=== PATIENT | male | born 1965 | race American Indian/Alaskan Native ===

== ENCOUNTER 2017-07-23 10:58 | Inpatient (IN) | payer OTHER ==
[2017-07-23] MEDS ORDERED: NITRO-BID 2% TP ONE (11:45)
[2017-07-23] MEDS ORDERED: CATAPRES PO ONE (11:45)
[2017-07-23 11:58] LABS: Basophils % (Auto) 0.6 % (0.0-1.8); Eosinophils % (Auto) 4.5 % (0.0-4.3); Hematocrit 39.8 % (35.5-45.6); Hemoglobin 13.1 gm/dl (11.8-15.2); Mean Corpuscular HGB Conc 33 % (32-34); Mean Corpuscular Hemoglobin 30 pg (28-32); Mean Corpuscular Volume 93 fl (84-94); Platelet Count 242 K/mm3 (140-440); Red Cell Distribution Width 12.8 % (13.2-15.2); White Blood Count 7.7 K/mm3 (4.5-11.0)
[2017-07-23] MEDS ORDERED: CATAPRES ONE (11:58)
--- NOTE | 2017-07-23 12:03 | Emergency Department Report ---
HPI - General Chief Complaint: Chest Pain Time Seen by Provider: 07/23/17 11:44 - HPI HPI: Room 6 The patient is a 52-year-old male presented with the chief complaint chest pain. Patient states he's had intermittent left-sided chest pain for approximately one month that feels like a pressure in nature. The patient states he went to the fire department today to be evaluated and they found him to be hypertensive. Patient was then transported to the ED. The patient states he has shortness of breath, diaphoresis and nausea without vomiting associated with this chest pain. Patient states he's never had a stress test or cardiac catheterization Location: Left chest Duration: Intermittently 1 month Quality: Pressure Severity: Currently 0/10 Modifying factors: [see above] Context: [see above] Mode of transportation: [not driving] ED Past Medical Hx - Past Medical History Hx Hypertension: Yes (non-compliant with meds) - Surgical History Additional Surgical History: leg surgery - Family History Family history: no significant - Social History Smoking Status: Current Every Day Smoker (1 pack per day) Substance Use Type: None (denies illicit drug use), Alcohol (occasional) - Medications Home Medications: Home Medications Medication Instructions Recorded Confirmed Last Taken Type No Known Home Medications [No 07/23/17 07/23/17 Unknown History Reported Home Medications] ED Review of Systems ROS: Stated complaint: CHEST PAIN Other details as noted in HPI Comment: All other systems reviewed and negative Constitutional: diaphoresis Eyes: denies: eye pain, eye discharge, vision change ENT: denies: ear pain, throat pain Respiratory: shortness of breath Cardiovascular: chest pain Endocrine: no symptoms reported Gastrointestinal: nausea. denies: vomiting Genitourinary: denies: urgency, dysuria Musculoskeletal: denies: back pain, joint swelling, arthralgia Skin: denies: rash, lesions Neurological: denies: headache, weakness, paresthesias Psychiatric: denies: anxiety, depression Hematological/Lymphatic: denies: easy bleeding, easy bruising Physical Exam - Physical Exam Vital Signs: Vital Signs 07/23/17 11:18 Temperature 98.3 F Pulse Rate 70 Respiratory 20 Rate Blood Pressure 233/112 O2 Sat by Pulse 98 Oximetry Physical Exam: GENERAL: The patient is well-developed well-nourished male lying on stretcher, appeared to be in acute distress. [] HEENT: Normocephalic. Atraumatic. Extraocular motions are intact. Patient has moist mucous membranes. NECK: Supple. Trachea midline CHEST/LUNGS: Clear to auscultation. There is no respiratory distress noted. HEART/CARDIOVASCULAR: Regular. There is no tachycardia. There is no gallop rub or murmur. ABDOMEN: Abdomen is soft, nontender. Patient has normal bowel sounds. There is no abdominal distention. SKIN: There is no rash. There is no edema. There is no diaphoresis. NEURO: The patient is awake, alert, and oriented. The patient is cooperative. The patient has normal speech MUSCULOSKELETAL:There is no evidence of acute injury. ED Course Vital Signs 07/23/17 11:18 Temperature 98.3 F Pulse Rate 70 Respiratory 20 Rate Blood Pressure 233/112 O2 Sat by Pulse 98 Oximetry ED Medical Decision Making - Lab Data Laboratory Tests 07/23/17 07/23/17 11:37 11:37 WBC 7.7 RBC 4.30 Hgb 13.1 Hct 39.8 MCV 93 MCH 30 MCHC 33 RDW 12.8 L Plt Count 242 Lymph % (Auto) 32.3 [place] % (Auto) 6.8 Eos % (Auto) 4.5 H Baso % (Auto) 0.6 Lymph # 2.5 [place] # 0.5 Eos # 0.3 Baso # 0.0 Seg Neutrophils % 55.8 Seg Neutrophils # 4.3 Sodium 141 Potassium 4.1 Chloride 100.4 Carbon Dioxide 26 Anion Gap 19 BUN 9 Creatinine 0.8 Estimated GFR > 60 BUN/Creatinine Ratio 11 Glucose 238 H Calcium 9.0 Troponin T < 0.010 - EKG Data -: EKG Interpreted by Me EKG shows normal: sinus rhythm Rate: normal - EKG Data When compared to previous EKG there are: previous EKG unavailable Interpretation: nonspecific ST-T wave sujata (T-wave inversions in leads 2, 3, aVF , V5, V6) - Radiology Data Radiology results: image reviewed (chest x-ray) interpreted by me: Chest [id number]. No focal infiltrates, no pneumothorax - Differential Diagnosis ACS, pericarditis, hypertensive urgency Critical care attestation.: If time is entered above; I have spent that time in minutes in the direct care of this critically ill patient, excluding procedure time. ED Disposition Clinical Impression: Chest pain, Hypertensive urgency Disposition: DC-09 OP ADMIT IP TO THIS HOSP Is pt being admited?: Yes Does the pt Need Aspirin: Yes Condition: Fair Instructions: Chest Pain (ED) Time of Disposition: 12:37 (hospitalist paged)
[2017-07-23 12:16] LABS: Anion Gap 19 mmol/L; BUN/Creatinine Ratio 11; Blood Urea Nitrogen 9 mg/dL (9-20); Carbon Dioxide 26 mmol/L (22-30); Chloride 100.4 mmol/L (98-107); Glucose 238 mg/dL (75-100); Potassium 4.1 mmol/L (3.6-5.0); Sodium 141 mmol/L (137-145)
--- NOTE | 2017-07-23 12:32 | XRay Report ---
PORTABLE CHEST INDICATION: Chest pain. COMPARISON: None similar at this institution. FINDINGS: Portable, frontal chest radiograph demonstrates mild exaggerated cardiomediastinal silhouette/possible cardiomegaly. Slightly crowded lung markings centrally. Minimal fluid or thickening along the right minor fissure. No large pleural effusions or CHF. EKG leads. Few bony degenerative changes. CONCLUSION: Slight cardiomegaly, as described. Thank you for the opportunity to participate in this patient's care.
[2017-07-23] MEDS ORDERED: ASPIRIN PO ONE (12:37)
[2017-07-23] MEDS ORDERED: COREG ONE (15:27)
--- NOTE | 2017-07-23 20:58 | History and Physical Report ---
History of Present Illness Date of examination: 07/23/17 Date of admission: 07/23/17 13:27 Chief complaint: chief complaint: chest pain for 1 month History of present illness: History of present illness:52-year-old male with history of hypertension. Left lower extremity vein problem comes in for intermittent chest pain of1 month duration .intermittent in nature. Pain is about 8/10 sharp in nature.No diaphoresis no palpitations no shortness of breath. No exacerbating or relieving factors No recent travel. Past History Past Medical History: hypertension (Not on any medicine) Past Surgical History: Other (LLE vein surgery- Patient not clear) Social history: lives with family, smoking (1 ppd), full code Family history: hypertension Medications and Allergies Allergies Allergy/AdvReac Type Severity Reaction Status Date / Time No Known Allergies Allergy Unverified 07/23/17 11:18 Home Medications Medication Instructions Recorded Confirmed Last Taken Type No Known Home Medications [No 07/23/17 07/23/17 Unknown History Reported Home Medications] Review of Systems All systems: negative Constitutional: no weight loss, no weight gain, no fever, no chills, no sweats, no night sweats Ears, nose, mouth and throat: no hoarseness, no sore throat, no swelling in mouth, no swelling in throat Cardiovascular: chest pain, no orthopnea, no palpitations, no edema, no syncope , no lightheadedness, no shortness of breath Respiratory: no cough, no cough with sputum, no excessive sputum, no hemoptysis , no shortness of breath, no dyspnea on exertion Gastrointestinal: no abdominal pain, no nausea, no vomiting, no diarrhea, no constipation, no change in bowel habits, no hematemesis, no coffee ground emesis Genitourinary Male: no dysuria, no hematuria, no flank pain, no discharge, no urinary frequency, no urinary hesitancy, no nocturia, no incontinence, no erectile dysfunction, no genital pain Rectal: no pain Musculoskeletal: no neck stiffness, no neck pain, no shooting arm pain, no arm numbness/tingling, no low back pain, no shooting leg pain, no leg numbness/ tingling, no redness of joints Integumentary: no rash, no pruritis, no redness, no sores, no wounds, no jaundice, no boils, no blisters Neurological: no head injury, no seizures, no syncope Psychiatric: no anxiety, no memory loss, no change in sleep habits, no sleep disturbances, no insomnia, no hypersomnia, no change in appetite, no change in libido Endocrine: no cold intolerance, no heat intolerance, no polyphagia, no excessive thirst, no polydipsia, no polyuria, no nocturia, no excessive sweating , no flushing, no weight change Hematologic/Lymphatic: no easy bruising, no easy bleeding Allergic/Immunologic: no urticaria, no allergic rhinitis, no wheezing Exam - Constitutional Vitals: Temp Pulse Resp BP Pulse Ox 98.4 F 66 17 165/82 98 07/23/17 19:00 07/23/17 19:00 07/23/17 19:00 07/23/17 19:00 07/23/17 19:00 General appearance: Present: no acute distress, well-nourished - EENT Eyes: Present: PERRL ENT: hearing intact, clear oral mucosa - Neck Neck: Present: supple, normal ROM - Respiratory Respiratory effort: normal Respiratory: bilateral: CTA - Cardiovascular Heart rate: 70 Rhythm: regular Heart Sounds: Present: S1 & S2. Absent: rub, click - Extremities Extremities: no ischemia, pulses intact, pulses symmetrical, No edema Peripheral Pulses: within normal limits - Abdominal General gastrointestinal: Present: soft, non-tender, non-distended, normal bowel sounds Male genitourinary: Present: normal - Rectal Rectal Exam: deferred - Integumentary Integumentary: Present: clear, warm, dry - Musculoskeletal Musculoskeletal: gait normal, strength equal bilaterally - Psychiatric Psychiatric: appropriate mood/affect, intact judgment & insight - Neurologic Neurologic: CNII-XII intact, moves all extremities Results - Labs CBC & Chem 7: 07/23/17 11:37 07/23/17 11:37 Labs: Laboratory Last Values WBC 7.7 K/mm3 (4.5-11.0) 07/23/17 11:37 RBC 4.30 M/mm3 (3.65-5.03) 07/23/17 11:37 Hgb 13.1 gm/dl (11.8-15.2) 07/23/17 11:37 Hct 39.8 % (35.5-45.6) 07/23/17 11:37 MCV 93 fl (84-94) 07/23/17 11:37 MCH 30 pg (28-32) 07/23/17 11:37 MCHC 33 % (32-34) 07/23/17 11:37 RDW 12.8 % (13.2-15.2) L 07/23/17 11:37 Plt Count 242 K/mm3 (140-440) 07/23/17 11:37 Lymph % (Auto) 32.3 % (13.4-35.0) 07/23/17 11:37 [place] % (Auto) 6.8 % (0.0-7.3) 07/23/17 11:37 Eos % (Auto) 4.5 % (0.0-4.3) H 07/23/17 11:37 Baso % (Auto) 0.6 % (0.0-1.8) 07/23/17 11:37 Lymph # 2.5 K/mm3 (1.2-5.4) 07/23/17 11:37 [place] # 0.5 K/mm3 (0.0-0.8) 07/23/17 11:37 Eos # 0.3 K/mm3 (0.0-0.4) 07/23/17 11:37 Baso # 0.0 K/mm3 (0.0-0.1) 07/23/17 11:37 Seg Neutrophils % 55.8 % (40.0-70.0) 07/23/17 11:37 Seg Neutrophils # 4.3 K/mm3 (1.8-7.7) 07/23/17 11:37 Sodium 141 mmol/L (137-145) 07/23/17 11:37 Potassium 4.1 mmol/L (3.6-5.0) 07/23/17 11:37 Chloride 100.4 mmol/L (98-107) 07/23/17 11:37 Carbon Dioxide 26 mmol/L (22-30) 07/23/17 11:37 Anion Gap 19 mmol/L 07/23/17 11:37 BUN 9 mg/dL (9-20) 07/23/17 11:37 Creatinine 0.8 mg/dL (0.8-1.5) 07/23/17 11:37 Estimated GFR > 60 ml/min 07/23/17 11:37 BUN/Creatinine Ratio 11 % 07/23/17 11:37 Glucose 238 mg/dL (75-100) H 07/23/17 11:37 Calcium 9.0 mg/dL (8.4-10.2) 07/23/17 11:37 Troponin T < 0.010 ng/mL (0.00-0.029) 07/23/17 17:38 Short CBC 07/23/17 Range/Units 11:37 WBC 7.7 (4.5-11.0) K/mm3 Hgb 13.1 (11.8-15.2) gm/dl Hct 39.8 (35.5-45.6) % Plt Count 242 (140-440) K/mm3 BMP 07/23/17 11:37 Sodium 141 Potassium 4.1 Chloride 100.4 Carbon Dioxide 26 BUN 9 Creatinine 0.8 Glucose 238 H Calcium 9.0 Cardiac Enzymes 07/23/17 07/23/17 07/23/17 Range/Units 11:37 14:13 17:38 Troponin T < 0.010 < 0.010 < 0.010 (0.00-0.029) ng/mL - Imaging and Cardiology EKG: report reviewed (Nsr 67/min LVH by voltage criteria) Assessment and Plan Advance Directives: Yes (Full code) VTE prophylaxis?: Chemical Plan of care discussed with patient/family: Yes - Patient Problems (1) Chest pain Current Visit: Yes Status: Acute Qualifiers: Chest pain type: unspecified Ischemic chest pain type: I Qualified Code(s ): R07.9 - Chest pain, unspecified Plan to address problem: R/o [place] protocol Serial CE's and Lexiscan in AM DIFF DX OF GERD AND costochondritis considered. Gerd a possibility.Costochondritis unlikely.No chest wall tenderness. (2) Hypertensive urgency Current Visit: Yes Status: Acute Plan to address problem: Initial BP was 227/126 mm Hg.Dropped down to 144/83 with po Clonidine x 1 dose Patient started on Amlodipine 10 mg po qd . (3) Nicotine dependence Current Visit: Yes Status: Chronic Qualifiers: Nicotine product type: cigarettes Substance use status: S Plan to address problem: Initiated on Nicoderm patch (4) DVT prophylaxis Current Visit: Yes Status: Acute Plan to address problem: on Lovenox
[2017-07-23] MEDS ORDERED: MILK OF MAGNESIA PO PRN (22:13)
[2017-07-23] MEDS ORDERED: ZOFRAN IV PRN (22:13)
[2017-07-23] MEDS ORDERED: TYLENOL PO PRN (22:13)
[2017-07-23] MEDS ORDERED: PERCOCET 5/325 PO PRN (22:13)
[2017-07-23] MEDS ORDERED: MORPHINE IV PRN (22:13)
[2017-07-23] MEDS ORDERED: DULCOLAX PR PRN (22:13)
[2017-07-23 23:57] LABS: Creatine Kinase MB 1.7 ng/mL (0.0-4.0)
[2017-07-24 05:51] LABS: Creatine Kinase MB 1.6 ng/mL (0.0-4.0)
[2017-07-24 05:55] LABS: Albumin/Globulin Ratio 1.3 %; Alkaline Phosphatase 119 units/L (35-129); Anion Gap 19 mmol/L; BUN/Creatinine Ratio 17; Blood Urea Nitrogen 12 mg/dL (9-20); Calcium 9.2 mg/dL (8.4-10.2); Carbon Dioxide 23 mmol/L (22-30); Glucose 141 mg/dL (75-100); Potassium 4.4 mmol/L (3.6-5.0); Sodium 139 mmol/L (137-145); Total Protein 7.1 g/dL (6.3-8.2)
[2017-07-24 06:28] LABS: Alanine Aminotransferase 22 units/L (7-56)
[2017-07-24] MEDS ORDERED: LEXISCAN IV ONE (08:12)
[2017-07-24] MEDS ORDERED: PEPCID PO SCH (10:00)
[2017-07-24] MEDS ORDERED: NORVASC PO SCH (10:00)
--- NOTE | 2017-07-24 11:12 | Discharge Summary ---
Providers - Providers Date of Admission: 07/23/17 13:27 Attending physician: GERARDO HOANG MD Primary care physician: BENZENE STILL [employer]ILITY OPERATOR Hospitalization Reason for admission: chest pain Condition: Stable Hospital course: 52-year-old male with history of hypertension. Left lower extremity vein problem comes in for intermittent chest pain of 1 month duration .intermittent in nature. Pain is about 8/10 sharp in nature. No diaphoresis no palpitations no shortness of breath. No exacerbating or relieving factors No recent travel. The patient reports tobacco use but denies any follow-up with her primary care physician and cannot remember when her last was in the hospital. On admission he had a really elevated blood pressure in the 200s systolic. This has since improved with no neurological sequela. His chest pain has resolved. Extensive counseling was provided to the patient the need to quit tobacco use and also to follow-up with primary care physician and keep a blood pressure diary including adjustment of diet. Discharge diagnosis Atypical chest pain likely secondary to hypertensive urgency Hypertensive urgency Tobacco abuse Obesity Disposition: DC-01 TO HOME OR SELFCARE Time spent for discharge: 35 mins Core Measure Documentation - Palliative Care Palliative Care/ Comfort Measures: Not Applicable - Core Measures Any of the following diagnoses?: none - VTE Discharge Requirements Deep Vein Thrombosis/Pulmonary Embolism Present on Admission: No Exam - Physical Exam Narrative exam: VITAL SIGNS: Reviewed. GENERAL: The patient appeared well nourished and normally developed. Vital signs as documented. HEAD: No signs of head trauma. EYES: Pupils are equal. Extraocular motions intact. EARS: Hearing grossly intact. MOUTH: Oropharynx is normal. NECK: No adenopathy, no JVD. CHEST: Chest with clear breath sounds bilaterally. No wheezes, rales, or rhonchi. CARDIAC: Regular rate and rhythm. S1 and S2, without murmurs, gallops, or rubs. VASCULAR: No Edema. Peripheral pulses normal and equal in all extremities. ABDOMEN: Soft, without detectable tenderness. No sign of distention. No rebound or guarding, and no masses palpated. Bowel Sounds normal. MUSCULOSKELETAL: Good range of motion of all major joints. Extremities without clubbing, cyanosis or edema. NEUROLOGIC EXAM: Alert and oriented x 3. No focal sensory or strength deficits. Speech normal. Follows commands. PSYCHIATRIC: Mood normal. SKIN: No rash or lesions. - Constitutional Vitals: Temp Pulse Resp BP Pulse Ox 97.7 F 58 L 20 155/77 93 07/24/17 04:22 07/24/17 04:22 07/24/17 04:22 07/24/17 04:22 07/24/17 04:22 Plan Activity: advance as tolerated, fall precautions Diet: low fat, low salt Special Instructions: record daily BP diary Follow up with: PRIMARY CARE, [Primary Care Provider] - 3-5 Days Prescriptions: amLODIPine [Norvasc] 10 mg PO QDAY #30 tablet Hydrochlorothiazide [HCTZ] 12.5 mg PO QDAY #30 capsule
[2017-07-24 11:26] LABS: Creatine Kinase MB 1.6 ng/mL (0.0-4.0)
[2017-07-24 14:04] VITALS: BP 166/71
--- NOTE | 2017-07-24 23:58 | Treadmill Report ---
INDICATION: Chest pain. FINDINGS: There is no definite evidence of ischemia. There is a mildly reduced count noted in the inferior wall on stress imaging due to the overlying liver/bowel artifact. The left ventricle is mildly dilated. The left ventricular ejection fraction is measured at 47%. Normal wall motion and wall thickening is noted on gated imaging. CONCLUSION: 1. No scintigraphic evidence of myocardial ischemia. 2. Mildly reduced uptake noted in the inferior wall on stress imaging due to adjacent bowel uptake. 3. Mildly dilated left ventricular cavity with an ejection fraction measured at 47%. 4. This is a low risk myocardial perfusion study. JOB# [id number] GLYNN/HECTOR
== END 2017-07-24 14:38 | disposition home or self-care (01) | DRG 305 ==
LOC: ED 10:58 → 4A 13:27
PROVIDERS: ADMIT Internal Medicine; ATTEND Internal Medicine
DX: I16.0 Hypertensive urgency (principal); E66.9 Obesity, unspecified; I10 Essential (primary) hypertension; F17.210 Nicotine dependence, cigarettes, uncomplicated; Z72.89 Other problems related to lifestyle; Z91.14 Patient's other noncompliance with medication regimen; Z68.35 Body mass index [BMI] 35.0-35.9, adult; Z83.3 Family history of diabetes mellitus
CPT/HCPCS: 36415; 71010; 78452; 80048; 80053; 82550; 82553; 83036; 84484; 85025; 93005; 93010; 93017; A9502; J2785

== ENCOUNTER 2018-12-10 09:00 | Outpatient (CLI) | payer OTHER ==
[2018-12-10] MEDS ORDERED: PROVENTIL IH ONE (10:02)
== END 2018-12-10 09:01 | disposition home or self-care (01) ==
LOC: PF 09:00
PROVIDERS: ATTEND Internal Medicine
DX: J44.9 Chronic obstructive pulmonary disease, unspecified (principal); E11.9 Type 2 diabetes mellitus without complications; I50.9 Heart failure, unspecified; R03.0 Elevated blood-pressure reading, without diagnosis of hypertension
CPT/HCPCS: 94060; 94640